=== PATIENT | male | born 1965 | race Caucasian/White ===

== ENCOUNTER → 2018-05-02 | Outpatient (CLI) | payer OTHER ==
[2018-05-02 13:30] LABS: BLOOD UREA NITROGEN 10 MG/DL (7-18); CALCIUM LEVEL 9.1 MG/DL (8.5-10.1); CARBON DIOXIDE LEVEL 31 MEQ/L (21-32); CHLORIDE LEVEL 99 MEQ/L (98-107); CREATININE FOR GFR 0.75 MG/DL (0.70-1.30); GLOMERULAR FILTRATION RATE > 60.0 (>56); GLUCOSE, FASTING 130 MG/DL (70-100); POTASSIUM SERUM 5.3 MEQ/L (3.5-5.1); SODIUM LEVEL 136 MEQ/L (136-145)
== END ==
LOC: M WUC 08:56
PROVIDERS: ATTEND Nurse Practitioner Family
DX: I10 Essential (primary) hypertension (principal)

== ENCOUNTER → 2018-09-10 | Outpatient (CLI) | payer BC ==
[2018-09-10 17:15] LABS: BLOOD UREA NITROGEN 15 MG/DL (7-18); CALCIUM LEVEL 9.1 MG/DL (8.5-10.1); CARBON DIOXIDE LEVEL 30 MEQ/L (21-32); CHLORIDE LEVEL 104 MEQ/L (98-107); CREATININE FOR GFR 0.65 MG/DL (0.70-1.30); GLOMERULAR FILTRATION RATE > 60.0 (>56); GLUCOSE, FASTING 85 MG/DL (70-100); POTASSIUM SERUM 4.2 MEQ/L (3.5-5.1); SODIUM LEVEL 139 MEQ/L (136-145)
== END ==
LOC: M WUC 14:58
PROVIDERS: ATTEND Nurse Practitioner Family
DX: I10 Essential (primary) hypertension (principal)

== ENCOUNTER → 2021-04-12 | Outpatient (CLI) | payer BC ==
--- NOTE | 2021-04-13 04:54 | REP ---
INDICATION: ABNORAL FINDINGS OF LUNG FIELD, NICOTINE DEPENDENCE COMPARISON: 03/09/2016 TECHNIQUE: PA and lateral. FINDINGS: The mediastinum and cardiac silhouette are normal. The lung alexis are clear and without acute consolidation, effusion, or pneumothorax. The skeletal structures are intact and normal. IMPRESSION: No acute cardiopulmonary process. <Electronically signed by Brijesh Gillis > 04/13/21 [id number]
== END ==
LOC: M WUC 14:35
PROVIDERS: ATTEND Physician Assistant
DX: R91.8 Other nonspecific abnormal finding of lung field (principal); F17.210 Nicotine dependence, cigarettes, uncomplicated

== ENCOUNTER → 2022-10-18 | Outpatient (CLI) | payer BC ==
[~2022-10-18] MED LIST: ISOVUE-370 76% 100ML VIAL As Ordered ONE
== END ==
LOC: M RAD 13:55
PROVIDERS: ATTEND Physician Assistant Medical
DX: R22.1 Localized swelling, mass and lump, neck (principal)

== ENCOUNTER → 2022-11-13 | Outpatient (CLI) | payer BC ==
[~2022-11-13] MED LIST changes: +AMLO1TAB24 PO; -ISOVUE-370 76% 100ML VIAL As Ordered ONE; +LIDOCAINE 1% MDV 20ML VIAL As Ordered ONE; +LISI20TA33 PO; +VARE1TAB2 PO
[2022-11-13 13:36] VITALS: TEMP 98.5
[2022-11-13 14:02] VITALS: BP 122/65; O2SAT 93
== END ==
LOC: M IRPRO 12:54
PROVIDERS: ATTEND Otolaryngology
DX: R22.1 Localized swelling, mass and lump, neck (principal)

== ENCOUNTER → 2022-11-26 | Outpatient (CLI) | payer BC ==
[~2022-11-26] MED LIST changes: -LIDOCAINE 1% MDV 20ML VIAL As Ordered ONE; +PERCOCET PO
== END ==
LOC: M ONCR 13:47
PROVIDERS: ATTEND General Practice
DX: C32.1 Malignant neoplasm of supraglottis (principal); F17.210 Nicotine dependence, cigarettes, uncomplicated; I10 Essential (primary) hypertension; Z79.899 Other long term (current) drug therapy; Z71.2 Person consulting for explanation of examination or test findings
CPT/HCPCS: 31575; G0463

== ENCOUNTER → 2022-12-06 | Outpatient (CLI) | payer BC ==
[~2022-12-06] MED LIST changes: +LIDOCAINE W/EPINEPHRINE 1% 20ML VIAL As Ordered ONE; +MIDAZOLAM INJ 2MG/2ML VIAL As Ordered ONE; +NS 1,000 ML IV SCH; +ceFAZolin 2 GM/D5W 50 ML IV BAG As Ordered ONE; +ceFAZolin SOD 2 GM in IV 1 EA IV ONE; +fentaNYL 100 MCG/2 ML INJECTION As Ordered ONE
[2022-12-06 08:27] VITALS: TEMP 98.1
[2022-12-06 12:00] VITALS: BP 144/82; O2SAT 91
== END ==
LOC: M IRPRO 08:05
PROVIDERS: ATTEND Specialist
DX: C32.1 Malignant neoplasm of supraglottis (principal)
CPT/HCPCS: 36561; 99152; 99153; J0690; J2250; J3010

== ENCOUNTER → 2022-12-09 | Outpatient (CLI) | payer BC ==
[~2022-12-09] MED LIST changes: -LIDOCAINE W/EPINEPHRINE 1% 20ML VIAL As Ordered ONE; -MIDAZOLAM INJ 2MG/2ML VIAL As Ordered ONE; -NS 1,000 ML IV SCH; -ceFAZolin 2 GM/D5W 50 ML IV BAG As Ordered ONE; -ceFAZolin SOD 2 GM in IV 1 EA IV ONE; -fentaNYL 100 MCG/2 ML INJECTION As Ordered ONE
== END ==
LOC: M PLARAD 14:19
PROVIDERS: ATTEND Physician Assistant Medical
DX: C32.1 Malignant neoplasm of supraglottis (principal)
CPT/HCPCS: 78815; A9552

== ENCOUNTER → 2022-12-12 | Outpatient (CLI) | payer BC ==
[~2022-12-12] VITALS: Ht 167.6 cm; Wt 64.2 kg
[~2022-12-12] MED LIST changes: +GABA-282 PO; +LIDO30CR18 TOP; +ONDA-84 PO; +PROC10TA5 PO
[2022-12-12 14:32] VITALS: BP 136/84; TEMP 97.8; O2SAT 94
== END ==
LOC: M PAL 14:22
PROVIDERS: ATTEND Nurse Practitioner Adult Health
DX: C01 Malignant neoplasm of base of tongue (principal); R13.10 Dysphagia, unspecified; G47.00 Insomnia, unspecified; R53.83 Other fatigue; F17.210 Nicotine dependence, cigarettes, uncomplicated; I10 Essential (primary) hypertension; Z79.899 Other long term (current) drug therapy

== ENCOUNTER → 2022-12-25 | Outpatient (CLI) | payer BC ==
[~2022-12-25] VITALS: Ht 167.6 cm; Wt 139.6 kg
[~2022-12-25] MED LIST changes: +OXYC10TA3 PO
[2022-12-25 11:02] VITALS: BP 107/72; O2SAT 96
== END ==
LOC: M PAL 10:40
PROVIDERS: ATTEND Nurse Practitioner Adult Health
DX: C01 Malignant neoplasm of base of tongue (principal); R13.10 Dysphagia, unspecified; F17.210 Nicotine dependence, cigarettes, uncomplicated; I10 Essential (primary) hypertension; Z51.5 Encounter for palliative care; Z72.89 Other problems related to lifestyle; Z79.899 Other long term (current) drug therapy; Z92.21 Personal history of antineoplastic chemotherapy; Z92.3 Personal history of irradiation

== ENCOUNTER → 2023-01-02 | Outpatient (RCR) | payer BC ==
[~2023-01-02] MED LIST changes: +MAGICMW SSP
== END ==
LOC: M ONCR 12-05 13:42
PROVIDERS: ATTEND General Practice
DX: Z51.0 Encounter for antineoplastic radiation therapy (principal); C32.1 Malignant neoplasm of supraglottis

== ENCOUNTER → 2023-01-15 | Outpatient (CLI) | payer BC ==
[~2023-01-15] VITALS: Ht 167.6 cm; Wt 60.8 kg
[~2023-01-15] MED LIST changes: +GUAI100S51 PO
[2023-01-15 10:10] VITALS: BP 126/79; O2SAT 97
== END ==
LOC: M PAL 09:42
PROVIDERS: ATTEND Nurse Practitioner Adult Health
DX: C01 Malignant neoplasm of base of tongue (principal); R13.10 Dysphagia, unspecified; F17.210 Nicotine dependence, cigarettes, uncomplicated; Z51.5 Encounter for palliative care; Z72.89 Other problems related to lifestyle; Z79.891 Long term (current) use of opiate analgesic; Z79.899 Other long term (current) drug therapy; Z92.21 Personal history of antineoplastic chemotherapy; Z92.3 Personal history of irradiation

== ENCOUNTER 2023-02-04 10:31 | Outpatient (RCR) | payer BC ==
[2023-03-06] MEDS ORDERED: MAGN400T2 PO (09:58)
== END 2023-03-04 ==
LOC: M ONCR 10:31
PROVIDERS: ATTEND General Practice
DX: Z51.0 Encounter for antineoplastic radiation therapy (principal); C32.1 Malignant neoplasm of supraglottis

== ENCOUNTER → 2023-02-18 | Outpatient (CLI) | payer BC | LOC: M ONCR 10:38 | PROVIDERS: ATTEND Radiology Radiation Oncology | DX: C32.1 Malignant neoplasm of supraglottis (principal); Z71.2 Person consulting for explanation of examination or test findings; Z92.21 Personal history of antineoplastic chemotherapy; Z92.3 Personal history of irradiation; F17.210 Nicotine dependence, cigarettes, uncomplicated; Z72.89 Other problems related to lifestyle; Z79.891 Long term (current) use of opiate analgesic; Z79.899 Other long term (current) drug therapy ==

== ENCOUNTER → 2023-03-04 | Outpatient (CLI) | payer BC ==
[~2023-03-04] VITALS: Ht 167.6 cm; Wt 58.6 kg
[~2023-03-04] MED LIST changes: +MAGN400T2 PO
[2023-03-04 14:31] VITALS: BP 155/88; O2SAT 98
== END ==
LOC: M PAL 14:22
PROVIDERS: ATTEND Nurse Practitioner Adult Health
DX: C01 Malignant neoplasm of base of tongue (principal); F17.210 Nicotine dependence, cigarettes, uncomplicated; Z51.5 Encounter for palliative care; Z72.89 Other problems related to lifestyle; Z79.891 Long term (current) use of opiate analgesic; Z79.899 Other long term (current) drug therapy; Z92.21 Personal history of antineoplastic chemotherapy; Z92.3 Personal history of irradiation

== ENCOUNTER → 2023-03-04 | Outpatient (CLI) | payer BC | LOC: M ONCR 14:43 | PROVIDERS: ATTEND General Practice | DX: Z01.89 Encounter for other specified special examinations (principal); R07.0 Pain in throat ==

== ENCOUNTER → 2023-04-21 | Outpatient (CLI) | payer BC | LOC: M PLARAD 10:03 | PROVIDERS: ATTEND General Practice | DX: C32.1 Malignant neoplasm of supraglottis (principal) | CPT/HCPCS: 78815; A9552 ==

== ENCOUNTER → 2023-05-16 | Outpatient (CLI) | payer BC ==
[~2023-05-16] MED LIST changes: +CETACAINE SPRAY 5GM MT ONE
== END ==
LOC: M ONCR 10:56
PROVIDERS: ATTEND General Practice
DX: C01 Malignant neoplasm of base of tongue (principal); F17.210 Nicotine dependence, cigarettes, uncomplicated; Z71.2 Person consulting for explanation of examination or test findings; Z72.89 Other problems related to lifestyle; Z79.899 Other long term (current) drug therapy; Z92.21 Personal history of antineoplastic chemotherapy; Z92.3 Personal history of irradiation
CPT/HCPCS: 31575; G0463

== ENCOUNTER → 2023-08-20 | Outpatient (CLI) | payer BC ==
[~2023-08-20] MED LIST changes: -CETACAINE SPRAY 5GM MT ONE
[2023-08-20 13:46] LABS: FREE T4 0.93 NG/DL (0.89-1.76); THYROID STIMULATING HORMONE 1.692 uIU/ML (0.55-4.78)
== END ==
LOC: M ONCR 11:21
PROVIDERS: ATTEND General Practice
DX: Z08 Encounter for follow-up examination after completed treatment for malignant neoplasm (principal); Z85.21 Personal history of malignant neoplasm of larynx; F17.210 Nicotine dependence, cigarettes, uncomplicated; Z71.2 Person consulting for explanation of examination or test findings; Z72.89 Other problems related to lifestyle; Z79.899 Other long term (current) drug therapy
CPT/HCPCS: 31575; 36415; 84439; 84443; G0463

== ENCOUNTER → 2023-11-19 | Outpatient (CLI) | payer BC | LOC: M ONCR 14:25 | PROVIDERS: ATTEND General Practice | DX: Z08 Encounter for follow-up examination after completed treatment for malignant neoplasm (principal); Z85.810 Personal history of malignant neoplasm of tongue; F17.210 Nicotine dependence, cigarettes, uncomplicated; Z71.2 Person consulting for explanation of examination or test findings; Z72.89 Other problems related to lifestyle; Z79.899 Other long term (current) drug therapy; Z79.891 Long term (current) use of opiate analgesic; Z92.21 Personal history of antineoplastic chemotherapy; Z92.3 Personal history of irradiation | CPT/HCPCS: 31575; G0463 ==

== ENCOUNTER → 2024-02-04 | Outpatient (CLI) | payer BC ==
[~2024-02-04] MED LIST changes: +GABA-1172 PO; -GABA-282 PO; +ISOVUE-370 76% 100ML VIAL As Ordered ONE
== END ==
LOC: M RAD 13:36
PROVIDERS: ATTEND General Practice
DX: C32.1 Malignant neoplasm of supraglottis (principal)

== ENCOUNTER → 2024-02-11 | Outpatient (CLI) | payer BC ==
[~2024-02-11] MED LIST changes: -ISOVUE-370 76% 100ML VIAL As Ordered ONE
== END ==
LOC: M ONCR 12:45
PROVIDERS: ATTEND General Practice
DX: C32.1 Malignant neoplasm of supraglottis (principal); F17.210 Nicotine dependence, cigarettes, uncomplicated; Z79.899 Other long term (current) drug therapy; Z92.21 Personal history of antineoplastic chemotherapy; Z92.3 Personal history of irradiation

== ENCOUNTER → 2024-05-18 | Outpatient (CLI) | payer BC | LOC: M ONCR 14:47 | PROVIDERS: ATTEND General Practice | DX: Z08 Encounter for follow-up examination after completed treatment for malignant neoplasm (principal); Z85.810 Personal history of malignant neoplasm of tongue; F17.210 Nicotine dependence, cigarettes, uncomplicated; Z92.21 Personal history of antineoplastic chemotherapy; Z92.3 Personal history of irradiation; Z79.899 Other long term (current) drug therapy | CPT/HCPCS: 31575; G0463 ==

== ENCOUNTER → 2024-09-02 | Outpatient (CLI) | payer BC ==
[~2024-09-02] MED LIST changes: +LEVO25TA5 PO
[2024-09-02 16:31] LABS: FREE T4 0.81 NG/DL (0.89-1.76); THYROID STIMULATING HORMONE 6.783 uIU/ML (0.55-4.78)
== END ==
LOC: M ONCR 15:15
PROVIDERS: ATTEND General Practice
DX: C32.1 Malignant neoplasm of supraglottis (principal); F17.218 Nicotine dependence, cigarettes, with other nicotine-induced disorders; Z72.89 Other problems related to lifestyle; Z79.899 Other long term (current) drug therapy; Z92.21 Personal history of antineoplastic chemotherapy; Z92.3 Personal history of irradiation
CPT/HCPCS: 31575; 36415; 84439; 84443; G0463

== ENCOUNTER → 2024-11-29 | Outpatient (CLI) | payer BC ==
[~2024-11-29] MED LIST changes: +ISOVUE-370 76% 100 ML VIAL As Ordered ONE
== END ==
LOC: M RAD 13:42
PROVIDERS: ATTEND General Practice
DX: C32.1 Malignant neoplasm of supraglottis (principal)

== ENCOUNTER → 2024-12-07 | Outpatient (CLI) | payer BC ==
[~2024-12-07] MED LIST changes: -ISOVUE-370 76% 100 ML VIAL As Ordered ONE
== END ==
LOC: M ONCR 15:15
PROVIDERS: ATTEND General Practice
DX: Z08 Encounter for follow-up examination after completed treatment for malignant neoplasm (principal); Z85.810 Personal history of malignant neoplasm of tongue; F17.218 Nicotine dependence, cigarettes, with other nicotine-induced disorders; Z92.21 Personal history of antineoplastic chemotherapy; Z92.3 Personal history of irradiation; Z79.890 Hormone replacement therapy; Z79.899 Other long term (current) drug therapy
CPT/HCPCS: 31575; G0463